=== PATIENT | female | born 1970 | race Two or more races ===

== ENCOUNTER 2016-09-07 14:07 | Emergency (ER) | payer SELFPAY ==
[~2016-09-07] VITALS: Ht 157.5 cm; Wt 74.8 kg
[2016-09-07 14:14] VITALS: BP 158/90
== END 2016-09-07 15:10 | disposition left against medical advice (07) ==
LOC: ER 14:36
DX: F41.9 Anxiety disorder, unspecified (principal); Z53.21 Procedure and treatment not carried out due to patient leaving prior to being seen by health care provider